=== PATIENT | male | born 1960 | race Caucasian/White ===

== ENCOUNTER 2025-02-24 22:17 | Inpatient (IN) ==
[2025-02-24] MEDS ORDERED: IPRATROPIUM/ALBUTEROL SULFATE 3 ML AMPUL.NEB INH ONE (22:28)
--- NOTE | 2025-02-24 22:29 | Emergency Department Note ---
HPI - General Adult General Chief complaint: SOB -Shortness of Breath Stated complaint: difficulty breathing, hx COPD Time Seen by Provider: 02/24/25 22:23 Source: patient Mode of arrival: walk-in Limitations: no limitations History of Present Illness HPI narrative: This is a 64 year old male patient that presents to the ER with c/o SOB and wheezing with a hx of COPD. Patient states he has done multiple neb tx at home and not feeling any better. patient denies any chest pain, back pain, abdominal pain, numbness, tingling, weakness or N/V/D Associated symptoms: Reports shortness of breath Treatments prior to arrival: Reports other (neb tx) Related Data Home Medications Medication Instructions Recorded Confirmed amlodipine 5 mg tablet 5 mg PO DAILY 02/14/2402/13 ferrous sulfate 325 mg (65 mg 325 mg PO DAILY 02/14/24 02/14/24 iron) tablet omeprazole 40 mg capsule,delayed 40 mg PO DAILY 02/14/24 release Previous Rx's Medication Instructions Recorded cephalexin 500 mg capsule 500 mg PO QID uti #40 caps 1 09/18/23 Allergies Allergy/AdvReac Type Severity Reaction Status Date / Time No Known Drug Allergies Allergy Verified 02/24/25 23:01 Review of Systems Status of ROS 10 or more systems reviewed and unremark able except as noted in history and below Constitutional Denies: fever, chills, change in weight or fatigue Eyes Denies: change in vision, blurry vision, blind spots, light sensitivity, eye discomfort or eye discharge Ears, nose, mouth, and throat Denies: throat pain, neck pain, throat swelling, difficulty swallowing or hoarseness Cardiovascular Reports: shortness of breath with exertion and shortness of breath when lying down; Denies: chest pain, palpitations, edema, swelling of feet/ankles or lightheadedness Respiratory Reports: shortness of breath and wheezing; Denies: cough, stridor, pain on inspiration, change in phlegm color or coughing up blood Gastrointestinal Denies: abdominal pain, nausea, vomiting, coffee grounds in vomit, heartburn, diarrhea, constipation or bloating Genitourinary Denies: painful urination, urinary frequency, urinary urgency, blood in urine, genital pain or genital lesion Musculoskeletal Denies: back pain, neck pain, extremity pain, extremity swelling, joint pain, limited range of motion or joint swelling Integumentary/Breast Denies: rash, itching, redness, skin pain, skin tenderness, skin swelling, sores or new lesion Neurological Denies: headache, numbness in extremities, weakness in extremities, lack of coordination, dizziness, vertigo or confusion Psychiatric Denies: anxiety, mood swings, panic attacks, change in sleep patter n, hopelessness or loss of interest Endocrine Denies: excessive urination, excessive thirst, fatigue, cold intolerance or excessive sweating Hematologic/Lymphatic Denies: easy bruising, easy bleeding or enlarged lymph nodes Allergic/Immunologic Denies: hives, throat swelling, tongue swelling, facial swelling, wheezing or itchy eyes PFSH PFSH Medical History (Updated 07/19/24 @ 15:05 by Donna Corral NP) Gastric ulcer Arthritis Diabetes Kidney stones Hypertension Anemia GERD (gastroesophageal reflux disease) Social History (Updated 02/13/24 @ 20:36 by Araseli Rivera RN) Smoking status: current every day smoker What tobacco products do you use: cigarettes Within the past year, how often did you have a drink containing alcohol: never Within the past year, how many standard drinks containing alcohol did you have on a typical day: 1 or 2 Within the past year, how often did you have six or more drinks on one occasion: never Total score: 0 Score interpretation: A score less than 4 is consistent with normal alcohol consumption. Non-prescribed substance use: denies use What is your current living situation: I presently have a place to live Problems where you live: no known problems In the past 12 months, utilities in danger of being shut off: no In past 12 months, lack of transportation kept you from medical appts, meetings, work, or getting things needed for daily living: No How hard is it for you to pay for the very basics like food, housing, medical care, and heating: somewhat hard Past 12 mos, fear food will run out before able to buy more: never true In past 12 months, food didn't last until money to buy more: never true Are you following a diet prescribed by a doctor: No Are you following a special diet: No Physical activity type: none Caffeine: No Are you now , , , , never or living with a partner: refused to answer How often does anyone, including family, friends and others, physically hurt you : never How often does anyone, including family, friends and others, insult or talk down to you: never How often does anyone, including family, friends and others, threaten you with harm: never How often does anyone, including family, friends and others, scream or curse at you: never Firearms in home: declined to answer Feel stressed/tense/nervous/anxious/difficulty sleeping: not at all Due to disability, difficulty making decisions: No Do you think of yourself as: straight/heterosexual Exam Constitutional: normal general appearance and distress noted (mild) and (respiratory) Vital Signs - 24 hr 02/24/25 22:20 02/24/25 22:26 02/24/25 22:53 Temperature 97.9 F Pulse Rate 88 84 Respiratory Rate 32 H 28 H Blood Pressure 168/119 168/119 Pulse Oximetry 97 95 99 Oxygen Delivery Me thod Room Air Room Air 02/24/25 23:00 02/24/25 23:30 02/25/25 00:00 Temperature Pulse Rate 82 85 70 Respiratory Rate 24 22 22 Blood Pressure 148/104 155/103 162/108 Pulse Oximetry 95 92 L 96 Oxygen Delivery Me thod Nasal Cannula Nasal Cannula Room Air HENMT: normocephalic, head/scalp atraumatic, hearing grossly normal bilaterally, external ears normal, nasal mucous membranes normal, external nose normal, oral mucous membranes normal and oropharynx normal Eyes: PERRL, EOMs intact bilaterally, conjunctivae normal, no scleral icterus and no papilledema Neck/C-Spine: visual inspection normal and trachea midline Lymph: no lymphadenopathy noted Chest: inspection of chest normal and palpation of chest normal Respiratory: breath sounds equal bilaterally, abnormal respiratory effort (shallow breathing) and (labored), auscultation abnormal (diminished breath sound), wheezing noted (scattered wheezes), no rales, retractions noted (mild), no use of accessory muscles and chest percussion normal Cardiovascular: heart rate abnormal (tachycardic), regular rhythm noted, no gallop, no rub, no murmur, no JVD, no clicks, peripheral pulses 2+ throughout, no bruits noted and no additional abnormal heart sounds Gastrointestinal: abdomen normal to inspection, abdomen soft to palpation, nontender to palpation, nontender to percussion, nondistended, normoactive bowel sounds, no hepatosplenomegaly, no masses, no pulsatile mass, no ascites and no hernia Genitourinary: no CVA tenderness Back/Pelvis: spine normal to inspection Extremities: normal to inspection, normal to palpation, no tenderness, full ROM, no joint enlargement and no deformity Neurology: breakfast server II-XII intact, no movement abnormality noted, no focal motor deficit noted, no sensory deficits noted, gait normal, speech normal, coordination normal, no pronator drift noted, no fasciculations noted and GCS normal Psychiatry: mental status grossly normal, oriented x3, thought process normal, cooperative and affect normal Skin: skin color normal Course Course Hospital Course: 0033: due to patient still requiring O2 to keep O2 sats greater than 92% will admit patient to the hospital for further evaluation and treatment. No s/s of acute distress noted. O2 sat 97% 2L NC, LS improved after meds and nebs Vital Signs Vital signs: Vital Signs Temperature 97.9 F 02/24/25 22:20 Pulse Rate 88 02/24/25 22:20 Respiratory Rate 32 H 02/24/25 22:20 Blood Pressure 168/119 02/24/25 22:20 Pulse Oximetry 97 02/24/25 22:20 Oxygen Delivery Method Room Air 02/24/25 22:20 Temperature 97.9 F 02/24/25 22:20 Pulse Rate 70 02/25/25 00:00 Respiratory Rate 22 02/25/25 00:00 Blood Pressure 162/108 02/25/25 00:00 Pulse Oximetry 96 02/25/25 00:00 Oxygen Delivery Method Room Air 02/25/25 00:00 Medical Decision Making Differential Diagnosis Differential Diagnosis: viral illness Medical Records Medical records reviewed: Yes I reviewed the patient's medical records Lab Data Lab results reviewed: Yes I reviewed the patient's lab results Labs: Lab Results 02/24/25 Range/Units 22:25 WBC 10.9 H (3.7-9.6) K/uL RBC 4.8 (4.40-5.80) M/uL Hgb 12.4 L (14.0-17.4) gm/dL Hct 38.8 L (41.3-50.1) % MCV 80.4 L (81.9-96.5) fl MCH 25.8 L (27.6-33.7) pg MCHC 32.0 L (33.0-35.7) g/dl RDW 17.4 H (11.0-14.8) % Plt Count 314 (142-355) K/uL MPV 8.2 (6.0-10.4) fl Gran % 61.5 (49.1-73.1) % Lymph % (Auto) 20.9 (17.6-39.05) % [place] % (Auto) 9.5 (4.5-10.7) % Eos % (Auto) 7.5 H (0.0-4.0) % Baso % (Auto) 0.6 (0.0-1.3) Lymph # (Auto) 2.3 (0.8-2.9) [place] # (Auto) 1.0 H (0.2-0.8) Eos # (Auto) 0.8 H (0.0-0.3) Baso # (Auto) 0.1 (0.0-0.1) Absolute Gran (auto) 6.7 H (2.0-6.2) Sodium 140 (136-145) mmol/L Potassium 4.3 (3.6-5.2) mmol/L Chloride 109.0 H (98-107) mmol/L Carbon Dioxide 20 L (21-32) mmol/L Anion Gap 11.0 (4-14) mEq/L BUN 24 H (7-18) mg/dL Creatinine 1.5 H (0.6-1.3) mg/dL Estimated GFR 52.0 (>59.9) Glucose 91 (70-110) mg/dL Calcium 8.7 (8.5-10.1) mg/dL Total Bilirubin 0.50 (0.0-1.0) mg/dL AST 28 (15-37) U/L ALT 18 L (30-65) U/L Alkaline Phosphatase 84 (50-136) U/L Troponin I High Sens (4.0-60.4) ng/L B-Natriuretic Peptide 108.0 H (0-100) pg/mL Total Protein 7.1 (6.4-8.2) g/dL Albumin 3.7 (3.4-5.0) g/dL Imaging Data Chest x-ray: Attestation: I personally reviewed and interpreted this imaging study as follows: Radiologist's impression: cxr: + pneumonia ECG Data Attestation: I have reviewed the pertinent ECG results. Discharge Plan Discharge Patient Disposition: Admitted As Observation Condition: Stable Clinical Impression: Pneumonia, COPD with exacerbation Time of Disposition: 00:33
[2025-02-24] MEDS: METHYLPREDNISOLONE SOD SUCC/PF 125 MG/2 ML VIAL IVP ONE (22:30)
[2025-02-24] MEDS ORDERED: METHYLPREDNISOLONE SOD SUCC/PF 125 MG/2 ML VIAL ONE (22:30)
[2025-02-24] MEDS ORDERED: BUDESONIDE 0.5 MG/2 ML AMPUL.NEB INH ONE (22:30)
[2025-02-24 22:50] LABS: Basophils #(Absolute) Auto 0.1 (0.0-0.1); Basophils%(Percent) Auto 0.6 (0.0-1.3); Eosinophils#(Absolute)Auto 0.8 (0.0-0.3); Eosinophils%(Percent) Auto 7.5 % (0.0-4.0); Granulocytes % - Auto 61.5 % (49.1-73.1); Granulocytes#(Absolute)- Auto 6.7 (2.0-6.2); Hematocrit 38.8 % (41.3-50.1); Mean Corpuscular Volume 80.4 fl (81.9-96.5); Monocytes %(Percent)- Auto 9.5 % (4.5-10.7); Platelet Count 314 K/uL (142-355); White Blood Count 10.9 K/uL (3.7-9.6)
[2025-02-24] MEDS: IPRATROPIUM/ALBUTEROL SULFATE 3 ML AMPUL.NEB INH ONE (22:52)
[2025-02-24] MEDS: BUDESONIDE 0.5 MG/2 ML AMPUL.NEB INH ONE (22:52)
[2025-02-24] MEDS ORDERED: 0.9 % SODIUM CHLORIDE 1000 ML 1,000 ML IV ONE (23:10)
[2025-02-25 00:04] LABS: Potassium 4.3 mmol/L (3.6-5.2)
[2025-02-25] MEDS ORDERED: 0.9 % SODIUM CHLORIDE MB+ 50 ML IV ONE (00:42)
[2025-02-25] MEDS ORDERED: CEFTRIAXONE SODIUM 1 GM VIAL ONE (00:42)
[2025-02-25] MEDS: CEFTRIAXONE SODIUM 1 GM in 0.9 % SODIUM CHLORIDE MB+ 50 ML IV ONE (00:46)
[2025-02-25] MEDS ORDERED: MAGNESIUM, ALUMINUM HYDROXIDE 30 ML ORAL.SUSP PO PRN (04:57)
[2025-02-25] MEDS ORDERED: ONDANSETRON HCL/PF 4 MG/2 ML VIAL INJ PRN (04:57)
[2025-02-25] MEDS ORDERED: DOCUSATE SODIUM 100 MG CAPSULE PO PRN (04:57)
[2025-02-25] MEDS: ALBUTEROL SULFATE 2.5 MG/3 ML VIAL.NEB INH SCH (05:27)
[2025-02-25] MEDS ORDERED: methylPREDNISolone acetate 40 MG/ML VIAL ONE (05:53)
[2025-02-25] MEDS ORDERED: METHYLPREDNISOLONE SOD SUCC/PF 40 MG/ML VIAL ONE ×2 (05:59→13:05)
[2025-02-25] MEDS: METHYLPREDNISOLONE SOD SUCC/PF 40 MG/ML VIAL INJ SCH (05:59)
[2025-02-25] MEDS ORDERED: ALBUTEROL SULFATE 2.5 MG/3 ML VIAL.NEB INH ONE (08:15)
[2025-02-25] MEDS ORDERED: AMLODIPINE BESYLATE 5 MG TABLET ONE (08:20)
[2025-02-25] MEDS ORDERED: FERROUS SULFATE 325 MG TABLET PO ONE (08:20)
[2025-02-25] MEDS ORDERED: FAMOTIDINE 20 MG TABLET ONE (08:20)
[2025-02-25] MEDS: FERROUS SULFATE 325 MG TABLET PO SCH (08:23)
[2025-02-25] MEDS: AMLODIPINE BESYLATE 5 MG TABLET PO SCH (08:23)
[2025-02-25] MEDS: FAMOTIDINE 20 MG TABLET PO SCH (08:23)
[2025-02-25] MEDS: ALBUTEROL SULFATE 2.5 MG/3 ML VIAL.NEB INH PRN (08:47)
[2025-02-25] MEDS ORDERED: CODEINE PHOSPHATE/GUAIFENESIN 200/20 MG/ 10 ML LIQUID PO PRN (09:33)
[2025-02-25] MEDS ORDERED: HYDROCODONE/CHLORPHEN P-STIREX 5 ML SUS.ER.12H ONE (09:53)
[2025-02-25] MEDS: HYDROCODONE/CHLORPHEN P-STIREX 5 ML SUS.ER.12H PO PRN (10:06)
[2025-02-25] MEDS: IPRATROPIUM/ALBUTEROL SULFATE 3 ML AMPUL.NEB INH SCH (11:22)
--- NOTE | 2025-02-25 13:56 | History & Physical Report ---
H&P: HPI History of Present Illness Chief complaint: difficulty breathing, hx COPD Narrative: This is a 64 year old male patient that presents to the ER with c/o SOB and wheezing with a hx of COPD. Patient states he has done multiple neb tx at home and not feeling any better. patient denies any chest pain, back pain, abdominal pain, numbness, tingling, weakness or N/V/D. History of UTI several months ago, prostate cancer and currently was on comfort care hospice and was revoked at this time. Do not think a physician in several days Review of Systems Status of ROS 10 or more systems reviewed and unremark able except as noted in history and below Constitutional Denies: fever, chills, change in weight or fatigue Eyes Denies: change in vision, blurry vision, blind spots, light sensitivity, eye discomfort or eye discharge Ears, nose, mouth, and throat Denies: throat pain, neck pain, throat swelling, difficulty swallowing, hoarseness or vertigo Cardiovascular Reports: shortness of breath with exertion and shortness of breath when lying down; Denies: chest pain, palpitations, edema, swelling of feet/ankles or lightheadedness Respiratory Reports: shortness of breath; Denies: cough, wheezing, stridor, pain on inspiration, change in phlegm color or coughing up blood Gastrointestinal Denies: abdominal pain, nausea, vomiting, coffee grounds in vomit, heartburn, diarrhea, constipation, bloating or difficulty swallowing Genitourinary Denies: painful urination, urinary frequency, urinary urgency, blood in urine, genital pain or genital lesion Musculoskeletal Denies: back pain, neck pain, extremity pain, extremity swelling, joint pain, limited range of motion or joint swelling Integumentary/Breast Denies: rash, itching, redness, skin pain, skin tenderness, skin swelling, sores or new lesion Neurological Denies: headache, numbness in extremities, weakness in extremities, lack of coordination, dizziness, vertigo or confusion Psychiatric Denies: anxiety, mood swings, panic attacks, change in sleep pattern, hopelessness or loss of interest Endocrine Denies: excessive urination, excessive thirst, fatigue, cold intolerance or excessive sweating Hematologic/Lymphatic Denies: easy bruising, easy bleeding or enlarged lymph nodes Allergic/Immunologic Denies: hives, throat swelling, tongue swelling, facial swelling, wheezing or itchy eyes PFSH PFSH Medical History (Updated 02/25/25 @ 16:14 by Tisha Wong DO) COPD exacerbation Prostate cancer COPD (chronic obstructive pulmonary disease) Gastric ulcer Arthritis Diabetes Kidney stones Hypertension Anemia GERD (gastroesophageal reflux disease) Social History (Updated 02/13/24 @ 20:36 by Araseli Rivera RN) Smoking status: current every day smoker What tobacco products do you use: cigarettes Packs per day: 1 Within the past year, how often did you have a drink containing alcohol: never Within the past year, how many standard drinks containing alcohol did you have on a typical day: 1 or 2 Within the past year, how often did you have six or more drinks on one occasion: never Total score: 0 Score interpretation: A score less than 4 is consistent with normal alcohol consumption. Non-prescribed substance use: denies use What is your current living situation: I presently have a place to live Problems where you live: no known problems In the past 12 months, utilities in danger of being shut off: no In past 12 months, lack of transportation kept you from medical appts, meetings, work, or getting things needed for daily living: No How hard is it for you to pay for the very basics like food, housing, medical care, and heating: somewhat hard Past 12 mos, fear food will run out before able to buy more: never true In past 12 months, food didn't last until money to buy more: never true Are you following a diet prescribed by a doctor: No Are you following a special diet: No Physical activity type: none Caffeine: No Are you now , , , , never or living with a partner: refused to answer How often does anyone, including family, friends and others, physically hurt you : never How often does anyone, including family, friends and others, insult or talk down to you: never How often does anyone, including family, friends and others, threaten you with harm: never How often does anyone, including family, friends and others, scream or curse at you: never Firearms in home: declined to answer Feel stressed/tense/nervous/anxious/difficulty sleeping: not at all Due to disability, difficulty making decisions: No Do you think of yourself as: straight/heterosexual Meds Home Medications and Allergies Home Medications Medication Instructions Recorded Confirmed Type amlodipine 5 mg tablet 5 mg PO DAILY 02/14/2402/25 History ferrous sulfate 325 mg (65 mg 325 mg PO DAILY 02/14/24 02/25/25 History iron) tablet omeprazole 40 mg capsule,delayed 40 mg PO DAILY 02/25/25 History release ampicillin 500 mg capsule 500 mg PO TID 02/25/2502/25 History cyclobenzaprine 5 mg tablet 5 mg PO BID 02/25/2502/25 History gabapentin 100 mg capsule 100 mg PO BID 02/25/2502/25 History metoprolol tartrate 50 mg tablet 50 mg PO DAILY 02/25/25 History Allergies Allergy/AdvReac Type Severity Reaction Status Date / Time No Known Drug Allergies Allergy Verified 02/24/25 23:01 Exam Constitutional: Vital Signs - 24 hr 02/24/25 22:20 02/24/25 22:26 02/24/25 22:53 Temperature 97.9 F Pulse Rate 88 84 Respiratory Rate 32 H 28 H Blood Pressure 168/119 168/119 Pulse Oximetry 97 95 99 Oxygen Delivery Me thod Room Air Nasal Cannula Oxygen Flow Rate Fraction of Inspir ed Oxygen 02/24/25 23:00 02/24/25 23:30 02/25/25 00:00 Temperature Pulse Rate 82 85 70 Respiratory Rate 24 22 22 Blood Pressure 148/104 155/103 162/108 Pulse Oximetry 95 92 L 96 Oxygen Delivery Me thod Nasal Cannula Nasal Cannula Nasal Cannula Oxygen Flow Rate Fraction of Inspir ed Oxygen 02/25/25 00:30 02/25/25 01:00 02/25/25 01:00 Temperature 97.9 F 97.9 F Pulse Rate 71 79 Respiratory Rate 20 20 20 Blood Pressure 151/100 151/103 Pulse Oximetry 97 97 Oxygen Delivery Me thod Nasal Cannula Oxygen Flow Rate 2 Fraction of Inspir ed Oxygen 02/25/25 03:55 02/25/25 04:00 02/25/25 05:28 Temperature Pulse Rate 72 72 Respiratory Rate 18 Blood Pressure 120/72 Pulse Oximetry 97 97 96 Oxygen Delivery Me thod Nasal Cannula Nasal Cannula Oxygen Flow Rate 2 Fraction of Inspir ed Oxygen 02/25/25 05:28 02/25/25 06:00 02/25/25 07:32 Temperature Pulse Rate 72 Respiratory Rate 18 Blood Pressure 141/87 Pulse Oximetry 96 98 98 Oxygen Delivery Me thod Nasal Cannula Nasal Cannula Oxygen Flow Rate 2 2 Fraction of Inspir ed Oxygen 28 02/25/25 08:00 02/25/25 08:19 02/25/25 08:23 Temperature 97.2 F L Pulse Rate 79 Respiratory Rate 19 Blood Pressure 137/93 137/93 Pulse Oximetry 97 94 L Oxygen Delivery Me thod Oxygen Flow Rate Fraction of Inspir ed Oxygen 02/25/25 11:22 02/25/25 11:34 Temperature 97.0 F L Pulse Rate 106 H Respiratory Rate 19 Blood Pressure 139/82 Pulse Oximetry 94 L 96 Oxygen Delivery Me thod Nasal Cannula Oxygen Flow Rate 2 Fraction of Inspir ed Oxygen Assessment and Plan Assessment and Plan (1) COPD exacerbation: Code(s): J44.1 - Chronic obstructive pulmonary disease with (acute) exacerbation (2) GERD (gastroesophageal reflux disease): Qualifiers: Esophagitis bleeding: without hemorrhage Esophagitis presence: with esophagitis Qualified Code(s): K21.00 - Gastro-esophageal reflux disease with esophagitis, without bleeding Code(s): K21.9 - Gastro-esophageal reflux disease without esophagitis (3) Hypertension: Qualifiers: Hypertension type: primary hypertension Qualified Code(s): I10 - Essential (primary) hypertension Code(s): I10 - Essential (primary) hypertension (4) Prostate cancer: Code(s): C61 - Malignant neoplasm of prostate (5) Acute renal injury: Code(s): N17.9 - Acute kidney failure, unspecified (6) Acute dehydration: Code(s): E86.0 - Dehydration Plan Iron, ferritin, TIBC, ABG pending along with urinalysis Cautious hydration 0.9% at 100 mL/h Solu-Medrol 40 mg IV every 12 DuoNeb inhaled every 6 hours Pulmicort every 12 hours Rocephin 1 g IV every 12 hours for possible UTI since history of prostate cancer and history of UTI while awaiting urine Zithromax 5 mg IV every day Discussed signs of end-of-life issues with patient states he is revoked comfort care hospice at this time Results Labs Labs: CBC 02/24/25 Range/Units 22:25 WBC 10.9 H (3.7-9.6) K/uL RBC 4.8 (4.40-5.80) M/uL Hgb 12.4 L (14.0-17.4) gm/dL Hct 38.8 L (41.3-50.1) % Plt Count 314 (142-355) K/uL Gran % 61.5 (49.1-73.1) % Lymph % (Auto) 20.9 (17.6-39.05) % [place] % (Auto) 9.5 (4.5-10.7) % Eos % (Auto) 7.5 H (0.0-4.0) % Baso % (Auto) 0.6 (0.0-1.3) Lymph # (Auto) 2.3 (0.8-2.9) [place] # (Auto) 1.0 H (0.2-0.8) Eos # (Auto) 0.8 H (0.0-0.3) Baso # (Auto) 0.1 (0.0-0.1) Absolute Gran (auto) 6.7 H (2.0-6.2) CMP 02/24/25 22:25 Sodium 140 Potassium 4.3 Chloride 109.0 H Carbon Dioxide 20 L BUN 24 H Creatinine 1.5 H Glucose 91 Calcium 8.7 Liver Function 02/24/25 Range/Units 22:25 Total Bilirubin 0.50 (0.0-1.0) mg/dL AST 28 (15-37) U/L ALT 18 L (30-65) U/L Alkaline Phosphatase 84 (50-136) U/L Albumin 3.7 (3.4-5.0) g/dL ABG Attestation: I have reviewed the pertinent ABG results. Pulse Oximetry Attestation: I have reviewed the pertinent pulse oximetry results. ECG Attestation: I have reviewed the pertinent ECG results. Prior ECG tracings: available for review Imaging Imaging ordered: Chest x-ray Radiologist's impression: EXAM: AP chest HISTORY: Pain COMPARISON: 01/11/2024 FINDINGS: Heart size normal and unchanged with clear lungs and pleural surfaces. Normal appearance of mediastinum and symmetric hilar structures. IMPRESSION: No acute chest abnormality demonstrated.
[2025-02-25] MEDS: PANTOPRAZOLE SODIUM 40 MG TABLET.DR PO SCH (17:14)
[2025-02-25] MEDS: ENOXAPARIN SODIUM 40 MG/0.4 ML SYRINGE SUBQ SCH (17:14)
[2025-02-25] MEDS: AZITHROMYCIN 500 MG 500 MG in 0.9 % SODIUM CHLORIDE 250 ML IV SCH (17:14)
[2025-02-25] MEDS: BUDESONIDE 0.5 MG/2 ML AMPUL.NEB INH SCH (20:15)
[2025-02-25] MEDS: CEFTRIAXONE SODIUM 1 GM in 0.9 % SODIUM CHLORIDE MB+ 50 ML IV SCH (21:19)
[2025-02-25] MEDS: ACETAMINOPHEN 500 MG TABLET PO PRN (21:28)
[2025-02-25 21:38] LABS: Specific Gravity Urine 1.005 (1.001-1.035); Urine Appearance HAZY (CLEAR); Urine Blood 1+ (NEG - TRACE); Urine Color YELLOW (STRAW/YELL.); Urine Urobilinogen Normal (NORMAL)
[2025-02-25 21:40] LABS: Urine Amorphous Sediment Negative (Negative)
[2025-02-25 21:41] LABS: Urine Yeast Negative (Negative)
[2025-02-26] MEDS: BUDESONIDE 0.5 MG/2 ML AMPUL.NEB INH SCH (00:32)
[2025-02-26] MEDS: IPRATROPIUM/ALBUTEROL SULFATE 3 ML AMPUL.NEB INH SCH (00:32)
[2025-02-26 05:42] LABS: Basophils #(Absolute) Auto 0.1 (0.0-0.1); Basophils%(Percent) Auto 0.4 (0.0-1.3); Granulocytes % - Auto 92.9 % (49.1-73.1); Granulocytes#(Absolute)- Auto 15.8 (2.0-6.2); Mean Corpuscular Volume 80.2 fl (81.9-96.5); Monocytes #(Absolute)- Auto 0.4 (0.2-0.8); Monocytes %(Percent)- Auto 2.5 % (4.5-10.7); Platelet Count 290 K/uL (142-355)
[2025-02-26 06:47] LABS: Potassium 4.4 mmol/L (3.6-5.2)
[2025-02-26] MEDS: LORazepam 1 MG TABLET PO PRN (11:35)
--- NOTE | 2025-02-26 13:45 | Progress Note ---
Progress Note: Subjective Subjective Interval history: Patient obviously anxious had to be given Ativan secondary to anxiety and feeling of impending doom. Very short of breath sats in the 80s having to have his oxygen on at all times overnight. Exam Constitutional: abnormal general appearance (disheveled), (chronically ill) and (frail appearing), distress noted (moderate) and (respiratory), average body habitus, limitations noted (behavioral limitations) and alert Vital Signs - 24 hr 02/25/25 15:29 02/25/25 20:00 02/25/25 20:15 Temperature 97.6 F Pulse Rate [Bilate ral] 107 H Respiratory Rate 22 Blood Pressure Blood Pressure [Ri ght Arm] 128/82 Pulse Oximetry 93 L 96 97 Oxygen Delivery Me thod Nasal Cannula Oxygen Flow Rate Fraction of Inspir ed Oxygen 02/25/25 23:40 02/26/25 00:33 02/26/25 00:33 Temperature 97.6 F Pulse Rate [Bilate ral] 96 H Respiratory Rate 19 Blood Pressure Blood Pressure [Ri ght Arm] 119/81 Pulse Oximetry 98 97 97 Oxygen Delivery Me thod Nasal Cannula Nasal Cannula Oxygen Flow Rate 2 Fraction of Inspir ed Oxygen 28 02/26/25 03:51 02/26/25 03:52 02/26/25 05:11 Temperature 97.8 F 97.8 F Pulse Rate [Bilate ral] 94 H 94 H Respiratory Rate 21 21 Blood Pressure Blood Pressure [Ri ght Arm] 127/75 127/75 Pulse Oximetry 96 96 96 Oxygen Delivery Me thod Nasal Cannula Nasal Cannula Oxygen Flow Rate Fraction of Inspir ed Oxygen 02/26/25 07:22 02/26/25 08:00 02/26/25 08:08 Temperature 97.3 F L Pulse Rate [Bilate ral] 112 H Respiratory Rate 26 H Blood Pressure 121/83 Blood Pressure [Ri ght Arm] 121/83 Pulse Oximetry 98 94 L Oxygen Delivery Me thod Nasal Cannula Oxygen Flow Rate 2 Fraction of Inspir ed Oxygen 02/26/25 11:25 02/26/25 11:48 Temperature 97.4 F L Pulse Rate [Bilate ral] 117 H Respiratory Rate 26 H Blood Pressure Blood Pressure [Ri ght Arm] 124/64 Pulse Oximetry 98 96 Oxygen Delivery Me thod Nasal Cannula Oxygen Flow Rate 1 Fraction of Inspir ed Oxygen HENMT: normocephalic, head/scalp atraumatic, hearing grossly normal bilaterally, external ears normal, nasal mucous membranes normal, external nose normal, oral mucous membranes abnormal, oropharynx normal and dentition abnormal Eyes: PERRL, EOMs intact bilaterally, conjunctivae normal, no scleral icterus, papilledema noted and periorbital findings normal Neck/C-Spine: abnormal to visual inspection, trachea midline, cervical spine nontender, abnormal cervical ROM noted, supple, no meningeal signs, thyroid normal and no carotid bruits Lymph: no lymphadenopathy noted Chest: inspection of chest normal and palpation of chest normal Respiratory: breath sounds equal bilaterally, normal respiratory effort, clear to auscultation bilaterally, wheezing noted (scattered wheezes), no rales, retractions noted (mild), no use of accessory muscles and chest percussion normal Cardiovascular: normal heart rate noted, regular rhythm noted, no gallop, no rub, no murmur, no JVD, no clicks, peripheral pulses 2+ throughout, no bruits noted and no additional abnormal heart sounds Gastrointestinal: abdomen normal to inspection, abdomen soft to palpation, nontender to palpation, nontender to percussion, nondistended, normoactive bowel sounds, no hepatosplenomegaly, no masses, no pulsatile mass, no ascites and no hernia Genitourinary: no CVA tenderness and bladder normal to palpation Back/Pelvis: spine normal to inspection and no thoracic spine tenderness Extremities: normal to inspection, normal to palpation, no tenderness, full ROM, no joint enlargement and no deformity Neurology: truck mechanic apprentice II-XII intact, no movement abnormality noted, no focal motor deficit noted, no sensory deficits noted, gait normal, speech normal, coordination normal, no pronator drift noted, no fasciculations noted and GCS normal Psychiatry: Mental Status Exam documented within this Exam's Psych section mental status grossly normal, oriented x3, thought process abnormality noted, cooperative, affect abnormality noted (anxious), psychomotor abnormality noted (agitated) and (disorganized) and memory normal Feel stressed/tense/nervou s/anxious/difficulty sleeping: rather much Life stressors: other Life stressor details: cancer and health Skin: skin color normal, no rash, no lesions, ecchymosis noted, no wounds, no lacerations, skin turgor normal, no jaundice, no mottling, nails abnormality noted and alopecia noted Progress Note: Objective Labs Labs: CBC 02/26/25 Range/Units 05:20 WBC 17.0 H (3.7-9.6) K/uL RBC 4.9 (4.40-5.80) M/uL Hgb 12.3 L (14.0-17.4) gm/dL Hct 39.0 L (41.3-50.1) % Plt Count 290 (142-355) K/uL Gran % 92.9 H (49.1-73.1) % Lymph % (Auto) 4.2 L (17.6-39.05) % [place] % (Auto) 2.5 L (4.5-10.7) % Eos % (Auto) 0.0 (0.0-4.0) % Baso % (Auto) 0.4 (0.0-1.3) Lymph # (Auto) 0.7 L (0.8-2.9) [place] # (Auto) 0.4 (0.2-0.8) Eos # (Auto) 0.0 (0.0-0.3) Baso # (Auto) 0.1 (0.0-0.1) Absolute Gran (auto) 15.8 H (2.0-6.2) CMP 02/26/25 05:20 Sodium 144 Potassium 4.4 Chloride 109.0 H Carbon Dioxide 28 BUN 24 H Creatinine 1.2 Glucose 127 H Calcium 8.4 L Liver Function 02/26/25 Range/Units 05:20 Total Bilirubin 0.40 (0.0-1.0) mg/dL AST 16 (15-37) U/L ALT 20 L (30-65) U/L Alkaline Phosphatase 76 (50-136) U/L Albumin 3.0 L (3.4-5.0) g/dL Urine 02/25/25 21:30 Urine Color Yellow Urine Appearance Hazy Ur Specific [place] 1.005 Urine Protein Negative Urine Glucose (UA) Normal Pulse Oximetry Attestation: I have reviewed the pertinent pulse oximetry results. ECG Attestation: I have reviewed the pertinent ECG results. Prior ECG tracings: available for review Interpretation: EKG-sinus tachycardia, multiple premature complexes ventricular and supraventricular, rate 115, RR 528, [place] 141 Progress Note: A&P Assessment and Plan (1) COPD exacerbation: (2) GERD (gastroesophageal reflux disease): Qualifiers: Esophagitis bleeding: without hemorrhage Esophagitis presence: with esophagitis Qualified Code(s): K21.00 - Gastro-esophageal reflux disease with esophagitis, without bleeding (3) Hypertension: Qualifiers: Hypertension type: primary hypertension Qualified Code(s): I10 - Essential (primary) hypertension (4) Prostate cancer: (5) Acute renal injury: (6) Acute dehydration: Plan Iron, ferritin, TIBC, ABG pending along with urinalysis Cautious hydration 0.9% at 100 mL/h Solu-Medrol 40 mg IV every 12 hold secondary to anxiety and developing psychosis and leukocytosis DuoNeb inhaled every 6 hours Pulmicort every 12 hours Rocephin 1 g IV every 12 hours for possible UTI since history of prostate cancer and history of UTI while awaiting urine Zithromax 5 mg IV every day Discussed signs of end-of-life issues with patient states he is revoked comfort care hospice at this time Fall Risk Details Oropeza Fall Scale Risk Level: Moderate Fall Risk Current Medications: Current Medications Acetaminophen (Acetaminophen 500 Mg Tablet) 500 mg PO Q6H PRN PRN Reason: MILD PAIN SCALE 1-4 Last Admin: 02/25/25 21:28 Dose: 500 mg Albuterol Sulfate (Ipratropium/Albuterol Sulfate 3 Ml Ampul.Neb) 3 ml INH RQ4 [facility] Last Admin: 02/26/25 11:24 Dose: 3 ml Albuterol Sulfate (Ipratropium/Albuterol Sulfate 3 Ml Ampul.Neb) 3 ml INH RQ4 [facility] Last Admin: 02/26/25 11:25 Dose: Not Given Amlodipine Besylate (Amlodipine Besylate 5 Mg Tablet) 5 mg PO DAILY [facility] Last Admin: 02/26/25 08:08 Dose: 5 mg Budesonide (Budesonide 0.5 Mg/2 Ml Ampul.Neb) 0.5 mg INH RBID [facility] Last Admin: 02/26/25 07:20 Dose: 0.5 mg Budesonide (Budesonide 0.5 Mg/2 Ml Ampul.Neb) 0.5 mg INH RBID [facility] Last Admin: 02/26/25 07:22 Dose: Not Given Docusate Sodium (Docusate Sodium 100 Mg Capsule) 100 mg PO DAILY PRN PRN Reason: Constipation Enoxaparin Sodium (Enoxaparin Sodium 40 Mg/0.4 Ml Syringe) 40 mg SUBQ DAILY [facility] Last Admin: 02/26/25 08:09 Dose: 40 mg Famotidine (Famotidine 20 Mg Tablet) 20 mg PO BID [facility] Last Admin: 02/26/25 08:09 Dose: 20 mg Ferrous Sulfate (Ferrous Sulfate 325 Mg Tablet) 325 mg PO DAILY [facility] Last Admin: 02/26/25 08:09 Dose: 325 mg Ceftriaxone Sodium 1 gm/ (Sodium Chloride) 50 mls @ 100 mls/hr IV BEDTIME [facility] Last Infusion: 02/25/25 21:50 Dose: Infused Azithromycin 500 mg/ Sodium (Chloride) 250 mls @ 250 mls/hr IV DAILY [facility] Last Infusion: 02/26/25 09:26 Dose: Infused Lorazepam (Lorazepam 1 Mg Tablet) 1 mg PO Q6H PRN; Protocol PRN Reason: Anxiety Last Admin: 02/26/25 11:35 Dose: 1 mg Magnesium Hydroxide (Magnesium, Aluminum Hydroxide 30 Ml Oral.Susp) 30 ml PO DAILY PRN PRN Reason: gerd Ondansetron HCl (Ondansetron Hcl/Pf 4 Mg/2 Ml Vial) 4 mg INJ Q6H PRN PRN Reason: Nausea And Vomiting Pantoprazole Sodium (Pantoprazole Sodium 40 Mg Tablet.Dr) 40 mg PO DAILY [facility] Last Admin: 02/26/25 08:09 Dose: 40 mg Time Spent With Patient Time: Total time spent is greater than 50% in coordination of care (as documented) at patient's floor/unit and/or counseling patient:
[2025-02-26] MEDS: 0.9 % SODIUM CHLORIDE 1000 ML 1,000 ML IV ONE (13:54)
[2025-02-27] MEDS: levalbuterol HCL 1.25 MG/3 ML VIAL.NEB ONE ×2 (07:59)
[2025-02-27] MEDS: levalbuterol HCL 1.25 MG/3 ML VIAL.NEB INH SCH (08:16)
--- NOTE | 2025-02-27 14:54 | Progress Note ---
Progress Note: Subjective Subjective Interval history: Patient's anxiety has improved unable to remove oxygen secondary to sats dropping to the 80s when removed and patient gets anxious feels like he is suffocating. Patient christopher afebrile white count pending for today had went up to 17 yesterday Exam Constitutional: normal general appearance, distress noted (mild) and (respiratory), average body habitus, limitations noted (behavioral limitations) and alert Vital Signs - 24 hr 02/26/25 16:00 02/26/25 19:39 02/26/25 19:39 Temperature 98.0 F 97.9 F Pulse Rate [Bilate ral] 102 H 99 H Respiratory Rate 23 22 Blood Pressure [Ri ght Arm] 142/98 147/95 Pulse Oximetry 96 100 95 Oxygen Delivery Me thod Nasal Cannula Nasal Cannula Oxygen Flow Rate 1 02/26/25 23:28 02/27/25 04:00 02/27/25 08:00 Temperature 98.0 F 98.3 F 97.3 F L Pulse Rate [Bilate ral] 95 H 98 H 84 Respiratory Rate 21 20 20 Blood Pressure [Ri ght Arm] 142/101 146/103 130/100 Pulse Oximetry 94 L 99 96 Oxygen Delivery Me thod Nasal Cannula Nasal Cannula Room Air Oxygen Flow Rate 02/27/25 08:16 02/27/25 12:00 Temperature 97.9 F Pulse Rate [Bilate ral] 102 H Respiratory Rate 19 Blood Pressure [Ri ght Arm] 107/80 Pulse Oximetry 98 91 L Oxygen Delivery Me thod Nasal Cannula Oxygen Flow Rate 1 HENMT: normocephalic, head/scalp atraumatic, hearing grossly normal bilaterally, external ears normal, nasal mucous membranes normal, external nose normal, oral mucous membranes normal and oropharynx normal Eyes: PERRL, EOMs intact bilaterally, conjunctivae normal, no scleral icterus, no papilledema and periorbital findings normal Neck/C-Spine: abnormal to visual inspection, trachea midline, cervical spine nontender, abnormal cervical ROM noted, supple, no meningeal signs, thyroid normal and no carotid bruits Lymph: no lymphadenopathy noted and no lymphedema noted Chest: inspection of chest normal and palpation of chest normal Respiratory: breath sounds equal bilaterally, normal respiratory effort, clear to auscultation bilaterally, wheezing noted (scattered wheezes), no rales, retractions noted (mild), no use of accessory muscles and chest percussion normal Cardiovascular: normal heart rate noted, regular rhythm noted, no gallop, no rub, no murmur, no JVD, no clicks, peripheral pulses 2+ throughout, no bruits noted and no additional abnormal heart sounds Gastrointestinal: abdomen normal to inspection, abdomen soft to palpation, nontender to palpation, nontender to percussion, nondistended, normoactive bowel sounds, no hepatosplenomegaly, no masses, no pulsatile mass, no ascites and no hernia Genitourinary: no CVA tenderness and bladder normal to palpation Back/Pelvis: spine abnormal to inspection Extremities: normal to inspection, normal to palpation, no tenderness, full ROM, no joint enlargement and no deformity Neurology: attending ambulatory care II-XII intact, no movement abnormality noted, no focal motor deficit noted, sensory deficit noted, deep tendon reflexes 2+ bilaterally, gait abnormality noted, speech normal, coordination normal and GCS normal Psychiatry: Mental Status Exam documented within this Exam's Psych section mental status grossly normal, oriented x3, thought process abnormality noted, cooperative, affect normal, psychomotor abnormality noted (agitated) and (disorganized) and memory normal Feel stressed/tense/nervous/anxious/difficulty sleeping: rather much Life stressors: other Life stressor details: cancer and health Skin: skin color normal, no rash, no lesions, ecchymosis noted, no wounds, no lacerations, skin turgor normal, no jaundice, no mottling, nails abnormality noted and alopecia noted Progress Note: Objective Labs Labs: Urine 02/25/25 21:30 Urine Color Yellow Urine Appearance Hazy Ur Specific [place] 1.005 Urine Protein Negative Urine Glucose (UA) Normal Progress Note: A&P Assessment and Plan (1) COPD exacerbation: (2) GERD (gastroesophageal reflux disease): Qualifiers: Esophagitis bleeding: without hemorrhage Esophagitis presence: with esophagitis Qualified Code(s): K21.00 - Gastro-esophageal reflux disease with esophagitis, without bleeding (3) Hypertension: Qualifiers: Hypertension type: primary hypertension Qualified Code(s): I10 - Essential (primary) hypertension (4) Prostate cancer: (5) Acute renal injury: (6) Acute dehydration: Plan Iron, ferritin, TIBC, ABG pending along with urinalysis Cautious hydration 0.9% at 100 mL/h End of life issues discussed in detail with patient for over 40 minutes and patient understands and is on hospice does not want to and is willing to seek treatment with another urologist is not Dr. Bentley. DuoNeb inhaled every 6 hours Pulmicort every 12 hours Rocephin 1 g IV every 12 hours for possible UTI since history of prostate cancer and history of UTI while awaiting urine Zithromax 5 mg IV every day Discussed signs of end-of-life issues with patient states he is revoked comfort care hospice at this time Encourage oral intake continue to work on increased fluids Fall Risk Details Oropeza Fall Scale Risk Level: Low Fall Risk Current Medications: Current Medications Acetaminophen (Acetaminophen 500 Mg Tablet) 500 mg PO Q6H PRN PRN Reason: MILD PAIN SCALE 1-4 Last Admin: 02/26/25 23:23 Dose: 500 mg Amlodipine Besylate (Amlodipine Besylate 5 Mg Tablet) 5 mg PO DAILY [facility] Last Admin: 02/27/25 08:19 Dose: 5 mg Budesonide (Budesonide 0.5 Mg/2 Ml Ampul.Neb) 0.5 mg INH RBID [facility] Last Admin: 02/27/25 08:15 Dose: 0.5 mg Docusate Sodium (Docusate Sodium 100 Mg Capsule) 100 mg PO DAILY PRN PRN Reason: Constipation Enoxaparin Sodium (Enoxaparin Sodium 40 Mg/0.4 Ml Syringe) 40 mg SUBQ DAILY [facility] Last Admin: 02/27/25 08:19 Dose: 40 mg Famotidine (Famotidine 20 Mg Tablet) 20 mg PO BID [facility] Last Admin: 02/27/25 08:19 Dose: 20 mg Ferrous Sulfate (Ferrous Sulfate 325 Mg Tablet) 325 mg PO DAILY [facility] Last Admin: 02/27/25 08:20 Dose: 325 mg Ceftriaxone Sodium 1 gm/ (Sodium Chloride) 50 mls @ 100 mls/hr IV BEDTIME [facility] Last Infusion: 02/26/25 22:54 Dose: Infused Azithromycin 500 mg/ Sodium (Chloride) 250 mls @ 250 mls/hr IV DAILY [facility] Last Infusion: 02/27/25 09:49 Dose: Infused Levalbuterol HCl (Levalbuterol Hcl 1.25 Mg/3 Ml Vial.Neb) 1.25 mg INH RQ6 [facility] Last Admin: 02/27/25 08:16 Dose: 1.25 mg Lorazepam (Lorazepam 1 Mg Tablet) 1 mg PO Q6H PRN; Protocol PRN Reason: Anxiety Last Admin: 02/26/25 23:23 Dose: 1 mg Magnesium Hydroxide (Magnesium, Aluminum Hydroxide 30 Ml Oral.Susp) 30 ml PO DAILY PRN PRN Reason: gerd Ondansetron HCl (Ondansetron Hcl/Pf 4 Mg/2 Ml Vial) 4 mg INJ Q6H PRN PRN Reason: Nausea And Vomiting Pantoprazole Sodium (Pantoprazole Sodium 40 Mg Tablet.Dr) 40 mg PO DAILY [facility] Last Admin: 02/27/25 08:19 Dose: 40 mg Time Spent With Patient Time: Total time spent is greater than 50% in coordination of care (as documented) at patient's floor/unit and/or counseling patient:
[2025-02-27 15:10] LABS: Basophils%(Percent) Auto 0.3 (0.0-1.3); Eosinophils#(Absolute)Auto 0.6 (0.0-0.3); Eosinophils%(Percent) Auto 5.2 % (0.0-4.0); Granulocytes % - Auto 71.5 % (49.1-73.1); Granulocytes#(Absolute)- Auto 7.9 (2.0-6.2); Hematocrit 42.1 % (41.3-50.1); Mean Corpuscular Volume 79.9 fl (81.9-96.5); Platelet Count 297 K/uL (142-355)
[2025-02-27 15:58] LABS: Potassium 3.7 mmol/L (3.6-5.2)
[2025-02-28 05:57] LABS: Basophils%(Percent) Auto 0.4 (0.0-1.3); Eosinophils#(Absolute)Auto 0.7 (0.0-0.3); Eosinophils%(Percent) Auto 7.4 % (0.0-4.0); Granulocytes % - Auto 61.1 % (49.1-73.1); Granulocytes#(Absolute)- Auto 5.5 (2.0-6.2); Mean Corpuscular Volume 80.1 fl (81.9-96.5); Monocytes %(Percent)- Auto 10.6 % (4.5-10.7); Platelet Count 294 K/uL (142-355)
[2025-02-28 06:17] LABS: Potassium 3.5 mmol/L (3.6-5.2)
[2025-02-28 07:39] VITALS: BP 147/94; PULSE 90; RESP 19; TEMP 97.9
[2025-02-28] MEDS: POTASSIUM CHLORIDE 20 MEQ TAB.ER.PRT PO ONE (09:15)
--- NOTE | 2025-02-28 09:28 | Discharge Summary ---
DS: Providers Provider Date of admission: 02/25/25 12:52 Primary care physician: NO PCP Provider Admitting clinician: Donna Corral Attending physician on admission: Tisha Wong Attending physician on discharge: Tisha Wong Discharging clinician: Tisha Wong Anticipated date of discharge: 02/28/25 DS: Diagnosis Discharge Diagnosis (1) COPD exacerbation: (2) GERD (gastroesophageal reflux disease): Qualifiers: Esophagitis bleeding: without hemorrhage Esophagitis presence: with esophagitis Qualified Code(s): K21.00 - Gastro-esophageal reflux disease with esophagitis, without bleeding (3) Hypertension: Qualifiers: Hypertension type: primary hypertension Qualified Code(s): I10 - Essential (primary) hypertension (4) Prostate cancer: (5) Acute renal injury: (6) Acute dehydration: (7) Hypokalemia: (8) Hypoalbuminemia: (9) Anemia: Qualifiers: Anemia type: other cause Other causes of anemia: other cause, not classified Qualified Code(s): D64.89 - Other specified anemias (10) Encounter for smoking cessation counseling: (11) Nicotine abuse: (12) End of life care: DS: Summary Hospital Course Hospital Course: 0033: due to patient still requiring O2 to keep O2 sats greater than 92% will admit patient to the hospital for further evaluation and treatment. No s/s of acute distress noted. O2 sat 97% 2L NC, LS improved after meds and nebs Patient multiple times to wean off of oxygen But sats Dropping to the 80s finally on the 02/27/2025 patient had a second attempt of the day for oxygen weaning patient tolerated well no oxygen required in the evening nighttime and still satting in the low 90s without increased effort on the morning 02/28/2025 the patient was at home without oxygen follow-up PCP. Anemia remained stable although iron studies ordered on admission did not get placed so replaced on day of discharge so she has been down and results will be pending but have at the time of follow-up and DOCS. This 70 mm proved an average follow-up 146 for repeat on follow-up in doctor's office to see if improves patient is to improve water intake in his daily diet. Potassium at 3.5 on day of discharge secondary to the nebulizers so we will give a dose orally x 1 prior to discharge to correct. Patient's PSA was 207 he does not want to see Dr. Bentley again and cannot get transportation to the [facility] so he agreed to see Dr. Lozoya on Thursday and we will help arrange the Medicaid transport for him since he does not understand how to do this. Patient's been on hospice since August without any treatment for the prostate cancer so we will need follow-up with urology for further testing evaluation and treatment regimen plan. Patient's albumin remained stable between 3 on admission and 2.9 on discharge patient's albumin remained stable 3 on admission to 2.9 on discharge. Patient e ating and drinking well at Bnpeptide at 200 on admission 143 on discharge and patient without swelling noted. Patient declined going back on hospice he states he does not want to when he saw Josefina eating too much money so he could not see him again and he was scared of surgery so he chose an option for hospice with a biopsy of the prostate showing adenocarcinoma Lorrie's score of 7 Time spent discussing smoking cessation with patient: more than 10 minutes Status at Discharge Functional status at discharge: independent ambulation Overall status at discharge: patient is back to baseline Time Spent with Patient Time attestation: Total time spent providing and/or coordinating discharge services: Exam Constitutional: normal general appearance, no apparent distress, average body habitus, no limitations and alert Vital Signs - 24 hr 02/27/25 12:00 02/27/25 14:57 02/27/25 16:00 Temperature 97.9 F 97.4 F L Pulse Rate [Bilate ral] 102 H 79 Respiratory Rate 19 19 Blood Pressure [Ri ght Arm] 107/80 134/95 Pulse Oximetry 91 L 91 L 95 Oxygen Delivery Me thod Nasal Cannula Room Air Oxygen Flow Rate 1 Fraction of Inspir ed Oxygen 02/27/25 20:00 02/27/25 20:27 02/27/25 20:27 Temperature 97.6 F Pulse Rate [Bilate ral] 80 Respiratory Rate 18 Blood Pressure [Ri ght Arm] 125/93 Pulse Oximetry 94 L 98 98 Oxygen Delivery Me thod Room Air Room Air Oxygen Flow Rate Fraction of Inspir ed Oxygen 21 02/28/25 00:00 02/28/25 04:00 02/28/25 06:00 Temperature 98.0 F 97.8 F 97.8 F Pulse Rate [Bilate ral] 89 91 H 91 H Respiratory Rate 19 18 18 Blood Pressure [Ri ght Arm] 150/93 147/102 147/102 Pulse Oximetry 95 95 95 Oxygen Delivery Me thod Room Air Room Air Room Air Oxygen Flow Rate Fraction of Inspir ed Oxygen 02/28/25 07:38 02/28/25 08:30 Temperature 97.9 F Pulse Rate [Bilate ral] 90 Respiratory Rate 19 Blood Pressure [Ri ght Arm] 147/94 Pulse Oximetry 94 L 96 Oxygen Delivery Me thod Room Air Oxygen Flow Rate Fraction of Inspir ed Oxygen HENMT: normocephalic, head/scalp atraumatic, hearing grossly normal bilaterally, external ears normal, nasal mucous membranes normal, external nose normal, oral mucous membranes normal and oropharynx normal Eyes: PERRL, EOMs intact bilaterally, conjunctivae normal, no scleral icterus and no papilledema Neck/C-Spine: visual inspection normal and trachea midline Lymph: no lymphadenopathy noted Chest: inspection of chest normal and palpation of chest normal Respiratory: breath sounds equal bilaterally, normal respiratory effort, clear to auscultation bilaterally, wheezing noted (scattered wheezes), no rales, retractions noted (mild), no use of accessory muscles and chest percussion normal Cardiovascular: normal heart rate noted, regular rhythm noted, no gallop, no rub, no murmur, no JVD, no clicks, peripheral pulses 2+ throughout, no bruits noted and no additional abnormal heart sounds Gastrointestinal: abdomen normal to inspection, abdomen soft to palpation, nontender to palpation, nontender to percussion, nondistended, normoactive bowel sounds, no hepatosplenomegaly, no masses, no pulsatile mass, no ascites and no hernia Genitourinary: no CVA tenderness Back/Pelvis: spine normal to inspection Extremities: normal to inspection, normal to palpation, no tenderness, full ROM, no joint enlargement and no deformity Neurology: stage director II-XII intact, no movement abnormality noted, no focal motor deficit noted, no sensory deficits noted, gait normal, speech normal, coordination normal, no pronator drift noted, no fasciculations noted and GCS normal Psychiatry: mental status grossly normal, oriented x3, thought process normal, cooperative and affect normal Feel stressed/tense/nervous/anxious/difficulty sleeping: rather much Life stressors: other Life stressor details: cancer and health Skin: skin color normal, no rash, no lesions, ecchymosis noted, no wounds, no lacerations, skin turgor normal, no jaundice, no mottling, nails abnormality noted and alopecia noted DS: Data Data Completed and Pending Labs on day of discharge: Labs from last 24 hours 02/28/25 02/27/25 02/27/25 05:10 15:02 05:00 WBC 9.0 11.0 H RBC 5.1 5.3 Hgb 13.2 L 13.3 L Hct 41.0 L 42.1 MCV 80.1 L 79.9 L MCH 25.8 L 25.3 L MCHC 32.2 L 31.6 L RDW 17.2 H 17.5 H Plt Count 294 297 MPV 8.5 8.0 Gran % 61.1 71.5 Lymph % (Auto) 20.5 14.0 L [place] % (Auto) 10.6 9.0 Eos % (Auto) 7.4 H 5.2 H Baso % (Auto) 0.4 0.3 Lymph # (Auto) 1.8 1.5 [place] # (Auto) 1.0 H 1.0 H Eos # (Auto) 0.7 H 0.6 H Baso # (Auto) 0.0 0.0 Absolute Gran (auto) 5.5 7.9 H Sodium 146 H 142 Potassium 3.5 L 3.7 Chloride 107.0 108.0 H Carbon Dioxide 29 27 Anion Gap 10.0 7.0 BUN 21 H 23 H Creatinine 1.2 1.2 Estimated GFR 68.0 68.0 Glucose 83 78 Calcium 8.0 L 8.3 L Phosphorus 4.3 3.0 Magnesium 1.9 2.0 Total Bilirubin 0.70 0.63 AST 30 33 ALT 27 L 27 L Alkaline Phosphatase 69 68 B-Natriuretic Peptide 143.0 H Total Protein 6.4 6.6 Albumin 2.9 L 3.0 L Prostate Specific Ag 207.02 H Free PSA 16.60 % Free PSA 8.1 02/27/25 05:00 WBC RBC Hgb Hct MCV MCH MCHC RDW Plt Count MPV Gran % Lymph % (Auto) [place] % (Auto) Eos % (Auto) Baso % (Auto) Lymph # (Auto) [place] # (Auto) Eos # (Auto) Baso # (Auto) Absolute Gran (auto) Sodium Potassium Chloride Carbon Dioxide Anion Gap BUN Creatinine Estimated GFR Glucose Calcium Phosphorus Magnesium Total Bilirubin AST ALT Alkaline Phosphatase B-Natriuretic Peptide Total Protein Albumin Prostate Specific Ag 205.0 H Free PSA % Free PSA Discharge Plan Discharge Disposition: Home, Self-Care Condition: Stable Discharge Medications: New amlodipine 5 mg Tablet 5 mg PO DAILY Qty: 30 0RF ferrous sulfate 325 mg (65 mg iron) Tablet 325 mg PO DAILY Qty: 30 0RF levalbuterol HCl 1.25 mg/3 mL Solution For Nebulization 1.25 mg inhalation RQ6 Qty: 100 0RF metoprolol tartrate 50 mg tablet 50 mg PO BID Qty: 60 0RF omeprazole 40 mg capsule,delayed release(DR/EC) 40 mg PO DAILY Qty: 30 0RF budesonide-formoterol [Symbicort] 80-4.5 mcg/actuation HFA aerosol inhaler 1 inh inhalation BID Qty: 10.2 0RF Continued cyclobenzaprine 5 mg tablet 5 mg PO BID Patient Comments: TAKE ONE TABLET BY MOUTH TWICE DAILY gabapentin 100 mg capsule 100 mg PO BID Patient Comments: TAKE ONE CAPSULE BY MOUTH TWICE DAILY ferrous sulfate 325 mg (65 mg iron) tablet 325 mg PO DAILY Discontinued ampicillin 500 mg capsule 500 mg PO TID Patient Comments: TAKE ONE CAPSULE BY MOUTH THREE TIMES DAILY FOR 7 DAYS metoprolol tartrate 50 mg tablet 50 mg PO DAILY Patient Comments: TAKE ONE TABLET BY MOUTH DAILY amlodipine 5 mg tablet 5 mg PO DAILY omeprazole 40 mg capsule,delayed release(DR/EC) 40 mg PO DAILY Discharge Orders: Discharge Order (Routine); Ordered 02/28/25 Ordered By: Tisha Wong Activity: increase activity as tolerated Diet: advance to your usual diet Activity Restrictions/Additional Instructions: Needs list of local providers and to follow-up with PCP in the next 2 to 3 days to ensure that referrals to oncology and urology in [place] are unable to follow through Iron studies pending at time of discharge secondary to machine down in the lab so will be sent to [facility] Until results back continue home iron orally may need to do infusions depending on level of iron at time of follow-up with PCP Forms: Portal/Health Info Access Inst Follow-Ups: Tisha Wong DO [Physician, Medical] - 03/07/25 3:30 pm Provider,NO PCP [Primary Care Provider, Adminstration]
== END 2025-02-28 11:24 | disposition home or self-care (01) | DRG 191 ==
LOC: ED 22:17 → EDHOLD 22:17 → MS 22:17 → EDHOLD 02-25 00:35 → OBSVTOIN 02-25 12:52
PROVIDERS: ADMIT Nurse Practitioner Family; ATTEND Family Medicine
DX: Z51.5 Encounter for palliative care; K21.00 Gastro-esophageal reflux disease with esophagitis, without bleeding; J44.1 Chronic obstructive pulmonary disease with (acute) exacerbation; E86.0 Dehydration; E88.09 Other disorders of plasma-protein metabolism, not elsewhere classified; M19.90 Unspecified osteoarthritis, unspecified site; K25.9 Gastric ulcer, unspecified as acute or chronic, without hemorrhage or perforation; C61 Malignant neoplasm of prostate; D72.829 Elevated white blood cell count, unspecified; D64.89 Other specified anemias; E11.9 Type 2 diabetes mellitus without complications; I10 Essential (primary) hypertension; F17.210 Nicotine dependence, cigarettes, uncomplicated; Z79.899 Other long term (current) drug therapy; N17.9 Acute kidney failure, unspecified; F41.9 Anxiety disorder, unspecified; E87.6 Hypokalemia